=== PATIENT | male | born 1945 | race Caucasian/White ===

== ENCOUNTER 2018-06-01 08:16 | Inpatient (IN) | payer OTHER ==
[2018-05-31 10:56] VITALS: BMI 24.0
[2018-06-01 08:31] LABS: #Eosinphils 0.3 thou/uL (0.0-0.7); #Lymphocytes 1.1 thou/uL (1.20-3.40); #Monocytes 0.4 thou/uL (0.11-0.59); #Neutrophils 3.4 thou/uL (1.40-6.50); %Basophils 0.6 % (0.0-1.0); %Lymphocytes 21.4 % (21.0-51.0); %Monocytes 7.5 % (0.0-10.0); %Neutrophils 65.4 % (42.0-75.0); Hemoglobin 14.5 g/dL (14.0-18.0); Mean Corpuscular HGB CONC 33.5 g/dL (32.0-36.0); Mean Corpuscular Volume 92.4 fL (78.0-98.0); Mean Platelet Volume 6.1 fL (7.4-10.4); Platelet Count 188 thou/uL (130-400); RBC Distribution Width 12.7 % (11.5-14.5); Red Blood Cell (RBC) Count 4.67 mill/uL (4.70-6.10); White Blood Cell (WBC) Count 5.1 thou/uL (4.8-10.8)
[2018-06-01 08:58] LABS: INR-International Normal Ratio 0.9; PTT 25.1 SEC (22.9-36.1); Prothrombin Time 12.3 SEC (12.0-14.7)
[2018-06-01] MEDS ORDERED: Sodium Bicarbonate 2.5 MEQ/5 ML VIAL ONE (09:19)
[2018-06-01] MEDS ORDERED: Lidocaine 1% PF 5 ML VIAL ONE (09:19)
[2018-06-01] MEDS ORDERED: Sodium Chloride 0.9% 10 ML ONE (09:19)
[2018-06-01] MEDS ORDERED: Midazolam HCl 2 mg/2 ml Vial ONE (11:02)
[2018-06-01] MEDS ORDERED: Fentanyl 100 MCG/2 ML VIAL ONE (11:02)
[2018-06-01] MEDS ORDERED: Albuterol Sulfate 2.5 mg/3 ml Neb NEB ONE (15:45)
--- NOTE | 2018-06-01 16:10 | RAD ---
CHEST INSPIRATION AND EXPIRATION: 06/01/18 HISTORY: Pneumothorax. COMPARISON: Radiograph 06/01/18. Findings are of similar appearance of the right pneumothorax with the apex at the posterior right sec ond/third interspace. Remainder of the findings are unchanged. IMPRESSION: Similar appearance to the right sided pneumothorax. POS: [facility]
--- NOTE | 2018-06-01 16:27 | CT ---
CT GUIDED LUNG MASS BIOPSY: HISTORY: Right upper lung nodule. COMPARISON: Outside facility CT and PET CT. FINDINGS: The patient was brought to the CT suite. All questions were answered. The patient's right upper back was prepped and draped in the normal sterile fashion. Informed consen t was obtained. A time out was performed. Lidocaine 5 mL was instilled. After adequate anesthesia, a small dermatotomy was made. A 19 gauge i ntroducer was placed, with the tip at the lung mass. Two 20 gauge cores were obtained. Pathology co nfirmed adequacy. No pneumothorax post procedure. IMPRESSION: Technically successful CT guided lung mass biopsy. POS: [facility]
--- NOTE | 2018-06-01 17:36 | RAD ---
CHEST ONE VIEW: 06/01/18 HISTORY: Chest pain. COMPARISON: CT same day. FINDINGS: There is a small right apical pneumothorax with left lung apex between the posterior second and third interspace. Innumerable osseous metastatic disease. Venous catheter tip is in the mid SVC. Multiple pulmonary nodules throughout the lungs. IMPRESSION: Small right sided pneumothorax with apex at the second/third interspace. POS: [facility]
[2018-06-01] MEDS ORDERED: Acetaminophen 325 MG TAB PO PRN (22:29)
[2018-06-02] MEDS ORDERED: Enoxaparin Sodium 40 MG/0.4 ML SYRINGE SC SCH (09:00)
[2018-06-02] MEDS ORDERED: Enoxaparin Sodium 100 MG/ML SYRINGE SC SCH (09:00)
[2018-06-02] MEDS: Folic Acid 1 MG TAB PO SCH (09:38)
--- NOTE | 2018-06-02 09:43 | RAD ---
CHEST PA AND LATERAL: HISTORY: A 73-year-old male post right upper lobe lung biopsy. COMPARISON: 06/01/2018. FINDINGS: Again noted is a right-sided pneumothorax. It appears slightly larger, particularly in the lower argenis st, than on the prior exam. There are chronic lung changes bilaterally including some blunting of th e left costophrenic angle and some scar-appearing density in the left mid lung zone. Extensive bone metastasis. IMPRESSION: Slightly enlarging right-sided pneumothorax. Extensive chronic lung changes. Bone metastasis. Findings of the enlarging right-sided pneumothorax were discussed with nurse Prasad on the floor at 9:20 a.m. CODE CR POS: [facility]
--- NOTE | 2018-06-02 11:25 | PDOC.PN ---
- Subjective Encounter Start Date: 06/02/18 Encounter Start Time: 09:45 Subjective: has sob on minimal exertion -: poor historian/mostly doesn't want to give out more info -: has had prior lung Bx and he does not want to reveal the results - Objective Resuscitation Status - Order Detail: 06/01/18 22:29 Resuscitation Status Routine Resuscitation Status: FULL: Full Resuscitation MAR Reviewed: Yes Vital Signs & Weight: Vital Signs (12 hours) Temp Pulse Resp BP BP Pulse Ox 06/02/18 07:55 97.6 F 78 20 145/67 H 99 06/02/18 06:34 97 06/02/18 04:23 98.1 F 78 20 139/61 92 L 06/02/18 00:14 98.2 F 70 16 165/68 H 95 Weight Weight 202 lb 4.8 oz I&O: 06/01/18 06/02/18 06/03/18 06:59 06:59 06:59 Intake Total 960 Balance 960 Result Diagrams: 06/01/18 08:22 Phys Exam - Physical Examination HEENT: PERRLA, moist MMs Neck: no JVD, supple Respiratory: no rales rhonchi+ Cardiovascular: RRR, no significant murmur Gastrointestinal: soft, non-tender, positive bowel sounds Musculoskeletal: no edema, pulses present Neurological: non-focal, moves all 4 limbs Psychiatric: A&O x 3 Dx/Plan (1) Pneumothorax after biopsy Code(s): J95.811 - POSTPROCEDURAL PNEUMOTHORAX Status: Acute Comment: had CT guided Bx done yesterday (2) Prostate cancer Code(s): C61 - MALIGNANT NEOPLASM OF PROSTATE Status: Chronic Comment: with multiple mets, f/u with at [facility] [place] (3) HTN (hypertension) Code(s): I10 - ESSENTIAL (PRIMARY) HYPERTENSION Status: Chronic Qualifiers: Hypertension type: essential hypertension Qualified Code(s): I10 - Essential (primary) hypertension (4) H/O deep venous thrombosis Code(s): Z86.718 - PERSONAL HISTORY OF OTHER VENOUS THROMBOSIS AND EMBOLISM Status: Chronic Comment: 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 He is difficult to get a full history, his H&P is not showing up yet. I spoke to 's nurse for the consult Review of Systems - Medications/Allergies Allergies/Adverse Reactions: Allergies Allergy/AdvReac Type Severity Reaction Status Date / Time No Known Allergies Allergy Verified 06/01/18 09:37 Medications: Current Medications Acetaminophen (Tylenol) 650 mg PO Q4H PRN PRN Reason: Headache/Fever/Mild Pain (1-3) Famotidine (Pepcid) 20 mg PO BID [facility] Folic Acid (Folvite) 1 mg PO Q2D [facility] Last Admin: 06/02/18 09:38 Dose: 1 mg HCTZ/Losartan Potassium (Hyzaar 50/12.5) 1 tab PO DAILY [facility] Last Admin: 06/02/18 09:38 Dose: 1 tab Mometasone Furoate (Asmanex Twisthaler) 1 puff INH 1830 [facility] Sodium Chloride (Flush - Normal Saline) 10 ml IVF Q12HR PRN PRN Reason: Saline Flush Sodium Chloride (Flush - Normal Saline) 10 ml IVF PRN PRN PRN Reason: Saline Flush Warfarin Sodium (Coumadin) 10 mg PO QPM [facility]
[2018-06-02] MEDS: Mometasone Furoate 120 PUFF 220 MCG INH SCH (18:50)
[2018-06-02] MEDS ORDERED: Warfarin Sodium 10 MG TAB PO SCH (21:00)
--- NOTE | 2018-06-02 22:43 | CON ---
DATE OF CONSULTATION: 06/02/2018 CHIEF COMPLAINT: Pneumothorax after lung biopsy. HISTORY OF PRESENT ILLNESS: The patient is a 73-year-old man with metastatic prostate cancer and a history of Mycobacterium avium-intracellulare. [facility] and [facility] up [facility]; that was done yesterday with the path report being read-out as fibrosis and focal giant cell reaction most consistent with granulomatous disease with no malignancy identified. The patient had a small pneumothorax primarily tracking along the lateral chest well and he was kept overnight on nasal cannula oxygen for observation. Symptomatically, the patient gets quite short of breath simply walking to cross the room to the bathroom, but he says that is at about his baseline. A followup chest x-ray today showed enlargement of that pneumothorax. PAST MEDICAL HISTORY: Significant for lung disease, prostate cancer, Mycobacterium avium-intracellulare. MEDICATIONS: His home medications are; 1. Coumadin. 2. Crestor. 3. Losartan/hydrochlorothiazide. 4. Pulmicort. 5. Zithromax. 6. Ethambutol. 7. Enzalutamide. 8. Rifampin. SOCIAL HISTORY: The patient continues to smoke. ALLERGIES: DENIES ANY MEDICAL ALLERGIES. REVIEW OF SYSTEMS: Positive for significant dyspnea on minimal exertion. PHYSICAL EXAMINATION: GENERAL: He is in no distress. Wearing nasal cannula oxygen. VITAL SIGNS: Heart rate is in the 65 to 80 range, blood pressure 145 to 150 over 60 to 70, respirations are 20, temperature is 98.2, nasal cannula oxygen is generating O2 sats at 97% to 99%. NECK: He has an accessed subcutaneous IV port in the right subclavian position. LUNGS: He has decreased breath sounds. He has no crepitus. No tracheal deviation. IMAGING STUDIES: His chest x-ray shows what appears to be extensive emphysematous changes some of which are documented on the limited CT cuts done for his biopsy. He had pulmonary function testing about a year and half ago that showed a forced vital capacity of 2.67, which was 49% of predicted and then improved to 3.26 L post bronchodilator and an FEV1 of 1.82, which was 50% of predicted and improved to 2.16 with bronchodilators. IMPRESSION AND RECOMMENDATIONS: The patient's lung disease radiographically seems far worse than his spirometry he had about a year ago and I think that it is not only little surprise, it would almost be expected that he have a pneumothorax following this procedure. Although it has enlarged overnight, he is now roughly 24 hours post biopsy, he is still reasonably comfortable and his pneumothorax is not just especially large. While this may be an exercise in futility, I think that it is reasonable to at least at first attempt manipulation of inspired oxygen with observation, which was not done overnight before comitting to tube decompression. Job ID: [id number]
[2018-06-02] MEDS: Rosuvastatin 5 MG TAB PO SCH (23:02)
--- NOTE | 2018-06-03 05:09 | HP ---
CHIEF COMPLAINT: The patient is transferred to be monitored for right-sided pneumothorax. HISTORY OF PRESENT ILLNESS: This is a 73-year-old male with past medical history of prostate CA, lung biopsy in the past, presenting with right-sided pneumothorax, status post right lung biopsy, which was performed on the day of admission. The patient is currently lying in bed, does not appear to be in any acute distress. The patient stated that he is feeling well and does not want to stick at this time. The patient states that he wants to just rest. At this time, the patient denies any shortness of breath, chest pain, palpitations, dizziness, headaches, abdominal pain, dysuria, hematuria, hematochezia, or melena. REVIEW OF SYSTEMS: All systems were reviewed and are negative. PAST MEDICAL HISTORY: Significant for recurrent DVTs, PEs, prostate cancer, hypertension, and anemia. PAST SURGICAL HISTORY: No past surgical history. FAMILY HISTORY: Reviewed and noncontributory at today's visit. SOCIAL HISTORY: No documented history of IV drug use or illicit drug use. The patient denies alcohol use. The patient denies smoking history. ALLERGIES: NO KNOWN DRUG ALLERGIES. CURRENT MEDICATIONS: The patient takes; 1. Azithromycin 250 daily. 2. Budesonide. 3. Lovenox 100 mg per mL. 4. Enzalutamide. 5. Ethambutol. 6. Folic acid. 7. Losartan/hydrochlorothiazide 50/12.5 mg. 8. Rifampin 300 mg. 9. Rosuvastatin 5 mg. 10. Warfarin 5 mg. PHYSICAL EXAMINATION: ADMISSION VITAL SIGNS: Temperature 97.1, pulse of 71, blood pressure of 140/100 , oxygen saturation of 97, and respiratory rate of 18. GENERAL: The patient is awake, alert and oriented x3, not in acute distress. The patient is lying in bed. The patient is very sleepy and states that he wants to go back to sleep. HEENT: Normocephalic and atraumatic. Pupils are equal, round, and reactive to light. Extraocular movements are intact. No scleral icterus. No conjunctival pallor. Mucous membranes are moist. NECK: Trachea is midline. No JVD. Full range of motion. No tenderness. Neck is supple. LUNGS: Clear to auscultation bilaterally. No wheezing, no rales, no rhonchi appreciated. CARDIAC: Positive S1 and S2. Regular rate and rhythm. No murmurs, no gallops , no rubs appreciated. ABDOMEN: Soft, nontender, and nondistended. Positive bowel sounds in all quadrants. EXTREMITIES: The patient has 5/5 upper extremity strength, 5/5 lower extremity strength. Good pulses bilaterally in the upper and lower extremities. No edema noted. SKIN: Warm, dry, and intact. No lesions. No rashes seen. NEUROLOGIC: Cranial nerves 2 through 12 grossly intact. No neurologic deficits noted. PSYCHIATRIC: Alert and oriented x3. Normal affect. DIAGNOSTIC DATA: The patient's chest x-ray that was done status post biopsy showed small pneumothorax in the right lung. LABORATORY DATA: WBC is 5.1, hemoglobin is 14.5, hematocrit is 43.2, and platelet count is 188. PT is 12.3, INR is 0.9, PTT 25.1. ASSESSMENT AND PLAN: This is a 73-year-old male, status post lung biopsy of the right, presenting with; 1. Right lung pneumothorax. At this point, pneumothorax is very small, so patient is being admitted on observation to be monitored. We will follow up on serial chest x-rays and we will follow up with the patient. 2. History of deep venous thrombosis. The patient is currently on therapeutic Lovenox and warfarin. At this time, we will not leave the patient on 2 anticoagulations, so we will discontinue 1 anticoagulation and we will keep the patient on only 1 at this time. 3. Deep venous thrombosis/gastrointestinal prophylaxis. DISPOSITION: We will follow up on chest x-ray in the morning and if improves, the patient can be discharged. If chest x-ray worsens, then we will get a CT scan of the chest to evaluate patient's lung. patient seen and examined on 06/01/2018 Job ID: [id number] MTDD
[2018-06-03 06:30] LABS: INR-International Normal Ratio 0.9; Prothrombin Time 12.6 SEC (12.0-14.7)
--- NOTE | 2018-06-03 07:55 | RAD ---
SINGLE VIEW OF THE CHEST: COMPARISON: 06/02/2018. HISTORY: Pneumothorax. FINDINGS: A single view of the chest shows a normal-size cardiomediastinal silhouette. Increased interstitial markings are present. The MediPort is unchanged in position. There is a small stable right pneumoth orax. IMPRESSION: Stable right pneumothorax. POS: [facility]
[2018-06-03] MEDS: Rifampin 300 MG CAP PO SCH (09:33)
[2018-06-03] MEDS: Ethambutol HCl 400 MG TAB PO SCH (09:33)
[2018-06-03] MEDS: Famotidine 20 MG TAB PO SCH (09:33)
--- NOTE | 2018-06-03 10:44 | PDOC.PN ---
- Subjective Encounter Start Date: 06/03/18 Encounter Start Time: 08:45 Subjective: no sob or chest pain at rest -: gets sob on minimal exertion in room - Objective Resuscitation Status - Order Detail: 06/01/18 22:29 Resuscitation Status Routine Resuscitation Status: FULL: Full Resuscitation MAR Reviewed: Yes Vital Signs & Weight: Vital Signs (12 hours) Temp Pulse Resp BP Pulse Ox 06/03/18 08:04 97.6 F 56 L 22 H 105/50 L 100 06/03/18 08:00 100 06/03/18 06:53 53 L 20 100 06/03/18 04:46 98.0 F 64 16 117/54 L 100 06/02/18 23:00 98.2 F 68 18 129/55 L 100 Weight Weight 202 lb 4.8 oz I&O: 06/02/18 06/03/18 06/04/18 06:59 06:59 06:59 Intake Total 960 480 Balance 960 480 Result Diagrams: 06/01/18 08:22 Phys Exam - Physical Examination HEENT: PERRLA, moist MMs Neck: no JVD, supple Respiratory: no wheezing, no rales Cardiovascular: RRR, no significant murmur Gastrointestinal: soft, non-tender, positive bowel sounds Musculoskeletal: no edema, pulses present Neurological: non-focal, moves all 4 limbs Psychiatric: normal affect, A&O x 3 Dx/Plan (1) Pneumothorax after biopsy Code(s): J95.811 - POSTPROCEDURAL PNEUMOTHORAX Status: Acute Comment: had CT guided Bx done yesterday (2) Prostate cancer Code(s): C61 - MALIGNANT NEOPLASM OF PROSTATE Status: Chronic Comment: with multiple mets, f/u with at [facility] [place] (3) HTN (hypertension) Code(s): I10 - ESSENTIAL (PRIMARY) HYPERTENSION Status: Chronic Qualifiers: Hypertension type: essential hypertension Qualified Code(s): I10 - Essential (primary) hypertension (4) H/O deep venous thrombosis Code(s): Z86.718 - PERSONAL HISTORY OF OTHER VENOUS THROMBOSIS AND EMBOLISM Status: Chronic Comment: 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 Review of Systems - Medications/Allergies Allergies/Adverse Reactions: Allergies Allergy/AdvReac Type Severity Reaction Status Date / Time No Known Allergies Allergy Verified 06/01/18 09:37 Medications: Current Medications Acetaminophen (Tylenol) 650 mg PO Q4H PRN PRN Reason: Headache/Fever/Mild Pain (1-3) Albuterol/Ipratropium (Duoneb) 3 ml NEB [id number] [facility] Last Admin: 06/03/18 06:53 Dose: 3 ml Ethambutol HCl (Myambutol) 1,200 mg PO DAILY [facility] Last Admin: 06/03/18 09:33 Dose: 1,200 mg Famotidine (Pepcid) 20 mg PO DAILY [facility] Last Admin: 06/03/18 09:33 Dose: 20 mg Folic Acid (Folvite) 1 mg PO Q2D [facility] Last Admin: 06/02/18 09:38 Dose: 1 mg HCTZ/Losartan Potassium (Hyzaar 50/12.5) 1 tab PO DAILY [facility] Last Admin: 06/03/18 09:33 Dose: 1 tab Mometasone Furoate (Asmanex Twisthaler) 1 puff INH 1830 [facility] Last Admin: 06/02/18 18:50 Dose: Not Given (Enzalutamide [ Xtandi] 160 Mg) Hm Med 0 each PO DAILY [facility] Rifampin (Rifadin) 600 mg PO DAILY [facility] Last Admin: 06/03/18 09:33 Dose: 600 mg Rosuvastatin Calcium (Crestor) 5 mg PO HS [facility] Last Admin: 06/02/18 23:02 Dose: 5 mg Sodium Chloride (Flush - Normal Saline) 10 ml IVF Q12HR PRN PRN Reason: Saline Flush Sodium Chloride (Flush - Normal Saline) 10 ml IVF PRN PRN PRN Reason: Saline Flush
[2018-06-03] MEDS ORDERED: Azithromycin 250 MG TAB PO SCH (12:00)
--- NOTE | 2018-06-03 12:04 | RAD ---
PORTABLE CHEST: HISTORY: Post chest tube placement. COMPARISON: An earlier examination done today. FINDINGS: There has been interval placement of a right-sided Heimlich valve-type catheter. The tube lies along the lower right lateral thoracic wall. The pneumothorax noted on the previous examination has resol vu. The right upper lobe lung mass is again demonstrated. Extensive osseous blastic bone lesions a re again seen. IMPRESSION: Interval placement of a right-sided Heimlich valve-type tube lying along the right lateral thoracic w all. There has been resolution of the right-sided pneumothorax since that exam. POS: [facility]
[2018-06-03] MEDS: Mometasone Furoate 120 PUFF 220 MCG INH SCH (18:30)
[2018-06-03] MEDS ORDERED: ENZALUTAMIDE 160 MG PO SCH (20:00)
[2018-06-03] MEDS: Rosuvastatin 5 MG TAB PO SCH (21:08)
--- NOTE | 2018-06-03 21:41 | OP ---
DATE OF PROCEDURE: 06/03/2018 PROCEDURE PERFORMED: Small-bore right chest tube placement with Heimlich valve placement. PREOPERATIVE DIAGNOSIS: Right pneumothorax, status post percutaneous lung biopsy. POSTOPERATIVE DIAGNOSIS: Right pneumothorax, status post percutaneous lung biopsy. ANESTHESIA: 1% lidocaine, local anesthesia. INDICATIONS: The patient is a 73-year-old man, who had delayed development of a small right-sided pneumothorax on a chest x-ray done following biopsy of a right upper lobe mass. That pneumothorax enlarged somewhat overnight and increased again on 100% facemask oxygen. FINDINGS: No air carlos heard upon entering the chest. Good re-expansion of the lung on postprocedure chest x-ray. NARRATIVE REPORT: After informed consent was obtained, the patient's chest x-ray was reviewed and landmarks on the chest wall observed to select the site for insertion of the pneumothorax catheter. At about the anterior axillary line, a large swath was prepped and draped. 1% lidocaine was used to infiltrate the skin and subcutaneous tissues. At the anterior axillary line at the level of the xiphoid, additional lidocaine was infiltrated along the superior rib margin and the air was aspirated upon entering the pleural space. An additional bolus of lidocaine was given just superficial to the pleura. A small skin parvez with an 11-blade scalpel at that level and then the pneumothorax catheter was inserted and then advanced into the chest cavity and the trocar needle was then removed. Stopcock was applied to it and then using the stopcock and a syringe, air was aspirated until resistance was felt with the stopcock closed. Tubing was attached to the catheter which was then attached to the Heimlich valve. The catheter and tubing were secured to the skin with suture and the tubing and Heimlich valve tight to the chest to prevent them from applying traction to the catheter postprocedure. The catheter insertion site was dressed with bio-occlusive dressing and a postprocedure chest x-ray showed good reexpansion of the lung. Job ID: [id number]
[2018-06-04] MEDS: Famotidine 20 MG TAB PO SCH (08:21)
[2018-06-04] MEDS: Ethambutol HCl 400 MG TAB PO SCH (08:21)
[2018-06-04] MEDS: Rifampin 300 MG CAP PO SCH (08:21)
[2018-06-04] MEDS: Folic Acid 1 MG TAB PO SCH (08:28)
[2018-06-04] MEDS ORDERED: Azithromycin 250 MG TAB PO SCH (09:00)
--- NOTE | 2018-06-04 09:19 | RAD ---
SINGLE VIEW OF THE CHEST: INDICATION: History of pneumothorax. COMPARISON: Prior chest radiograph dated 06/03/2018. FINDINGS: Right-sided thoracostomy tube is unchanged. Severe emphysema and scattered pulmonary nodularity is s table. No pneumothorax is evident. Bolus changes of the lung apices are similar appearing. Osseous metastatic disease is stable. IMPRESSION: 1. No pneumothorax. 2. Bolus changes of both lung apices. 3. Right-sided thoracostomy. POS: [facility]
[2018-06-04 11:20] VITALS: BP 111/63; TEMP 97.6
--- NOTE | 2018-06-04 12:29 | PDOC.PN ---
- Subjective Encounter Start Date: 06/04/18 Encounter Start Time: 08:45 Subjective: no sob, feels good, is amb in room -: eating his breakfast now - Objective Resuscitation Status - Order Detail: 06/01/18 22:29 Resuscitation Status Routine Resuscitation Status: FULL: Full Resuscitation MAR Reviewed: Yes Vital Signs & Weight: Vital Signs (12 hours) Temp Pulse Resp BP Pulse Ox 06/04/18 11:19 97.6 F 82 18 111/63 89 L 06/04/18 08:00 91 L 06/04/18 07:25 97.8 F 63 18 109/65 89 L 06/04/18 06:47 60 14 06/04/18 04:00 97.6 F 65 18 116/66 94 L Weight Weight 202 lb 4.8 oz I&O: 06/03/18 06/04/18 06/05/18 06:59 06:59 06:59 Intake Total 480 Balance 480 Result Diagrams: 06/01/18 08:22 Phys Exam - Physical Examination HEENT: PERRLA, moist MMs Neck: no JVD, supple Respiratory: no wheezing, no rales has Heimlich valve+ Cardiovascular: RRR, no significant murmur Gastrointestinal: soft, non-tender, positive bowel sounds Musculoskeletal: no edema, pulses present Neurological: non-focal, moves all 4 limbs Psychiatric: normal affect, A&O x 3 Dx/Plan (1) Pneumothorax after biopsy Code(s): J95.811 - POSTPROCEDURAL PNEUMOTHORAX Status: Acute Comment: had CT guided Bx done yesterday (2) Prostate cancer Code(s): C61 - MALIGNANT NEOPLASM OF PROSTATE Status: Chronic Comment: with multiple mets, f/u with at [facility] [place] (3) HTN (hypertension) Code(s): I10 - ESSENTIAL (PRIMARY) HYPERTENSION Status: Chronic Qualifiers: Hypertension type: essential hypertension Qualified Code(s): I10 - Essential (primary) hypertension (4) H/O deep venous thrombosis Code(s): Z86.718 - PERSONAL HISTORY OF OTHER VENOUS THROMBOSIS AND EMBOLISM Status: Chronic Comment: 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 * .
--- NOTE | 2018-06-04 13:05 | DIS ---
DATE OF ADMISSION: 06/02/2018 DATE OF DISCHARGE: 06/04/2018 PRINCIPAL DIAGNOSIS: Right pneumothorax, status post right lung mass biopsy. PROCEDURES PERFORMED: Percutaneous CT-guided right lung biopsy 06/01/2018, small bore right chest tube placement 06/03/2018. HISTORY OF PRESENT ILLNESS AND HOSPITAL COURSE: The patient is a 73-year-old with metastatic prostate cancer and a history of mycobacterium avium-intracellulare. A percutaneous biopsy of right apical mass was done by CT guidance. He had development of very small pneumothorax and it was opted to observe him overnight. Pneumothorax got somewhat larger and he was observed on 100% face mask oxygen while his dyspnea on exertion was hard to distinguish from his baseline. The pneumothorax enlarged more and it was opted to evacuate it with a small bore catheter, which was then placed on a Heimlich valve. He had good re-expansion of his lung. The cause of how far away from medical care such as this he lives, it was opted to observe him again overnight. His chest x-ray shows his lungs still well expanded and on examination, he has minimal, if any air leak. I will plan on seeing him in the office early next week with another chest x-ray with the hopes that this tube can be removed. Job ID: [id number]
--- NOTE | 2018-06-04 21:05 | DIS ---
DATE OF ADMISSION: 06/02/2018 DATE OF DISCHARGE: 06/04/2018 DISCHARGE DISPOSITION: To home. PRIMARY DISCHARGE DIAGNOSIS: Right pneumothorax, status post CT-guided lung biopsy, status post thin bore chest tube with Heimlich valve for pneumothorax. SECONDARY DISCHARGE DIAGNOSES: 1. History of deep venous thrombosis with Coumadin held for now due to pneumothorax and having Heimlich valve. 2. History of prostate cancer with multiple metastases and the patient following up with Susan Curry. 3. Hypertension. 4. Chronic obstructive pulmonary disease. 5. History of Mycobacterium avium complex lung infection, on rifampin, Zithromax , and ethambutol per the patient. PROCEDURES DONE DURING HOSPITALIZATION: The patient has had CT-guided lung biopsy done on 06/01/2018. Histopathology of the lung biopsy showed fibrosis, elastosis, and focal giant cell reaction, most compatible with granulomatous reaction, negative for malignancy. Postprocedure chest x-ray done showed pneumothorax. The patient had small bore right chest tube placement with Heimlich valve placement done by Dr. Cornejo on 06/03/2018. H and H 14 and 43, platelet count 188. DISCHARGE MEDICATIONS: 1. The patient to continue his Zithromax, ethambutol, and rifampin as before for his MAC infection. 2. Crestor 5 mg p.o. nightly. 3. Coumadin as before. 4. Folic acid 1 mg every 2 days. 5. Losartan with hydrochlorothiazide one tablet daily. 6. Enzalutamide 160 mg daily for his prostate cancer. 7. Budesonide inhaler twice daily. ALLERGIES: NO KNOWN DRUG ALLERGIES. INPATIENT CONSULT: Dr. Cornejo for Cardiothoracic Surgery. DISCHARGE PLAN: The patient to follow up with primary care physician in [address] Cornejo as advised. BRIEF COURSE DURING HOSPITALIZATION: The patient initially was sent from [place] for a CT-guided lung biopsy of pulmonary nodule. Post procedure, the patient developed a pneumothorax and was hospitalized. He has had consultation with Dr. Cornejo. The patient has had serial chest x-rays done, which showed enlarging pneumothorax. Finally, the patient had a small bore chest tube placed with Heimlich valve. His pneumothorax is clearing up post procedure. He has been cleared by Dr. Cornejo to go home today. He needs to follow up with him as advised. He also needs [facility]. Please see a [id number] documentation on [employer] for the day of discharge. Please note his coumadin was held due to pneumothorax and needs to be restarted when his chest ube is out [facility]. Please fax a copy of this summary to his [facility]. Job ID: [id number] MTDD
== END 2018-06-04 13:53 | disposition home or self-care (01) | DRG 200 ==
LOC: CT 08:16 → 3SE 18:22 → OBSVTOIN 06-02 11:31 → T4-B 06-03 12:22
PROVIDERS: ADMIT Family Medicine; ATTEND Family Medicine
PROC: 0BBC3ZX Excision of Right Upper Lung Lobe, Percutaneous Approach, Diagnostic (ICD-10-PCS; principal; 2018-06-03)
PROC: 0W9930Z Drainage of Right Pleural Cavity with Drainage Device, Percutaneous Approach (ICD-10-PCS; 2018-06-03)
DX: J93.9 Pneumothorax, unspecified (principal); A31.0 Pulmonary mycobacterial infection; Z79.899 Other long term (current) drug therapy; Z86.718 Personal history of other venous thrombosis and embolism; Z86.711 Personal history of pulmonary embolism; Z79.01 Long term (current) use of anticoagulants; J44.9 Chronic obstructive pulmonary disease, unspecified; I10 Essential (primary) hypertension; C61 Malignant neoplasm of prostate
CPT/HCPCS: 32405; 36415; 71045; 71046; 77012; 85025; 85610; 85730; 88305; 88312; 88333; 88334; 94640; J1642; J2001; J2250; J3010; J7611; J7620

== ENCOUNTER 2018-06-08 13:55 | Outpatient (CLI) | payer OTHER ==
--- NOTE | 2018-06-08 14:22 | RAD ---
TWO VIEWS CHEST: Date: 06-08-18 Provided Clinical History: Dyspnea. FINDINGS: Comparison is made with study dated 06-04-18. Cardiac and mediastinal silhouette is unchanged in appearance. Right IJ implanted port is again seen in similar position. Bilateral pulmonary parenchymal opacities and sclerotic osseous metastatic lesio ns are again noted. Right sided pleural catheter is again seen. No pleural fluid or pneumothorax appa rent. IMPRESSION: Stable radiographic appearance of the chest. POS: C
== END 2018-06-08 13:56 | disposition home or self-care (01) ==
LOC: RAD 13:55
PROVIDERS: ATTEND Thoracic Surgery (Cardiothoracic Vascular Surgery)
DX: J95.811 Postprocedural pneumothorax (principal)
CPT/HCPCS: 71046

== ENCOUNTER 2018-06-08 15:28 | Outpatient (CLI) | payer OTHER ==
--- NOTE | 2018-06-08 16:18 | RAD ---
TWO VIEWS CHEST: HISTORY: Dyspnea. FINDINGS: PA and lateral views of the chest are obtained on 06/08/2018. Comparison is made to a previous exam f rom earlier in the day on 06/08/2018. Two views of the chest again demonstrate right jugular MediPort catheter in place. Extensive bilateral pulmonary parenchymal nodular density is again seen. Right-sided pneumo catheter has been removed. No evidence of a recurrent pneumothorax is seen. IMPRESSION: Removal of right-sided pneumo catheter. POS: GRACE
== END 2018-06-08 15:29 | disposition home or self-care (01) ==
LOC: RAD 15:28
PROVIDERS: ATTEND Thoracic Surgery (Cardiothoracic Vascular Surgery)
DX: J95.811 Postprocedural pneumothorax (principal)
CPT/HCPCS: 71046